=== PATIENT | female | born 1995 | race Caucasian/White ===

== ENCOUNTER 2025-05-14 23:25 | Emergency (ER) | payer SELFPAY ==
--- NOTE | ~2025-05-14 | XR_ITS ---
CLINICAL HISTORY: cough 2 view chest x-ray Comparison: None provided Findings: Lungs are clear without acute infiltrates. No pneumothorax. Heart size normal. No acute bony abnormalities. Left pacemaker with right leads. Impression: No acute processes This document has been electronically signed by: Johnnie Hughes MD on 05/15/2025 00:26:06
[2025-05-14 23:33] VITALS: BP 118/82; PULSE 62; O2SAT 99
[2025-05-14 23:36] VITALS: BP 108/60; PULSE 62; RESP 20; TEMP 36.1; O2SAT 98; BMI 20.3
[2025-05-15 00:28] LABS: Resp Syncy Virus RNA Qual PCR NEGATIVE (Negative); SARS COV2 PCR INHOUSE NEGATIVE (Negative)
--- NOTE | 2025-05-15 01:18 | ED.URI ---
HPI - URI/Sore Throat General Chief Complaint: Upper Respiratory Symptoms Stated Complaint: unhoused & has had a cough for 2 mo., now worse Time Seen by Provider: 05/15/25 01:13 Source: patient Mode of arrival: ambulatory Limitations: no limitations History of Present Illness ED Provider: DR. Kilpatrick HPI Narrative: 29-year-old female who is homeless came in to the ED today for evaluation of 2 months of cough. otherwise patient admit that she has homeless and has no place to go and need to stay warm, No headache, no neck pain, no CP, no SOB, no abdominal pain, no back pain. Related Data Allergies Allergy/AdvReac Type Severity Reaction Status Date / Time No Known Allergies Allergy Verified 05/14/25 23:37 Review of Systems Review of Systems: All other systems are reviewed and are negative Constitutional: Reports as per HPI and Reports no additional constitutional complaints Eyes: Reports as per HPI and Reports no additional eye complaints Reports system reviewed and no additional complaints, except as documented Cardiovascular: Reports as per HPI and Reports no additional cardiovascular complaints Respiratory: Reports as per HPI and Reports no additional respiratory complaints Gastrointestinal: Reports as per HPI and Reports no additional gastrointestinal complaints Genitourinary: Reports no additional female genitourinary complaints Musculoskeletal: Reports no additional musculoskeletal complaints Skin/Breast: Reports system reviewed and no additional complaints, except as docu Psychiatric: Reports no additional psychiatric complaints Endocrine: Reports no additional endocrine complaints Hematologic/Lymphatic: Reports no additional hematologic/lymphatic complaints Allergic/Immunologic: Reports no additional allergic/immunologic complaints Reports system reviewed and no additional complaints, except as documented and Reports Abnormal speech present Physical Exam Vital Signs: Vital Signs: Last Vital Signs Temp 96.9 F 05/14/25 23:36 Pulse 62 05/14/25 23:36 Resp 20 05/14/25 23:36 BP 108/60 05/14/25 23:36 Pulse Ox 98 05/14/25 23:36 O2 Del Method Room Air 05/14/25 23:36 BMI result Body Mass Index 20.3 Vital signs have been reviewed and appear to be correct. Blood pressure elevated. Heart rate normal. Respiratory rate normal. Temperature normal. Oxygen saturation normal. Appearance: Alert. Oriented X3. No acute distress. Head: Normal external exam. Normocephalic. Atraumatic. No Sousa signs noted. No raccoon eyes noted Eyes: PERRLA. EOMI. Conjunctiva and sclera normal. Eyelids normal. ENT: TM's Normal. Pharynx normal. Uvula midline. Moist mucous membranes. No trismus noted. No drooling noted. No muffled voice noted. Neck: Normal inspection. Neck supple. FROM. No adenopathy. Thyroid Normal. No meningeal signs. No neck mass noted. CVS: Normal heart rate and rhythm. Heart sound normal. No murmurs noted. Pulses normal throughout. Respiratory: No respiratory distress. Painless inspiration. Breath sounds normal. No wheezes/rales/rhonchi noted. Chest nontender. No accessory muscle usage noted or decreased air movement noted. Abdomen: Soft and nontender. Bowel sounds normal in all 4 quadrants. No distention noted. No organomegaly noted. No visible injury noted. Back: No CVA tenderness. Full range of motion noted. Skin: Skin warm and dry. Normal skin color. Normal skin turgor. No rashes/lesions/lacerations noted. Extremities: No lower extremity edema. Extremities exhibit normal range of motion. Extremities nontender. Neuro: Oriented X 3. Cranial nerve exam: II-XII are grossly intact No motor deficit. No sensory deficit. Reflexes normal. Course Reevaluation(s) Reevaluation #1: Upper respiratory infection symptoms, patient hemodynamically stable, O2 sat is 98%, with RR of 20. Chest x-ray shows no acute pathology. Upper respiratory swab is unremarkable for acute. Time: 01:25 Medical Decision Making Differential Diagnosis Differential Diagnoses: The differential diagnosis associated with the presentation includes ( Pneumonia, pneumothorax, pleural effusion, influenza, COVID-19 infection, RSV.) Admission/Observation Consideration of admission/observation: Escalation of care including admission/observation considered Lab Data MDM Lab Attestation statement: I reviewed the patient's lab results. Labs: Lab Results 05/14/25 Range/Units 23:46 Influenza Type A (PCR) NEGATIVE (Negative) Influenza Type B (PCR) NEGATIVE (Negative) RSV RNA Qual (PCR) NEGATIVE (Negative) SARS-CoV-2 RNA (RT-PCR) NEGATIVE (Negative) Independent Interpretation I performed an independent interpretation of an: Plain X-Ray ( Chest: No acute process.) Radiology Impression Discussion of test interpretation with radiology: I have reviewed the radiologist's reading. Social Determinants Patient?s care significantly limited by Social Determinants of Health including: Inadequate housing, Low income and Unemployment Discharge Plan Discharge Clinical Impression: Upper respiratory infection, Homelessness Patient Disposition: Home, Self-Care Instructions: Acute Bronchitis (ED) Print Language: Sinhala
[2025-05-15 01:23] VITALS: BP 115/56; PULSE 62; RESP 14; TEMP 36.6; O2SAT 98; O2SAT 99
--- NOTE | 2025-05-15 01:24 | PC.NURSE ---
provider assess pt, sandwich and drink given, pt homeless, okay for pt to wait in waiting room until tomorrow, security aware.
[2025-05-15 01:31] VITALS: BP 115/56; PULSE 62; RESP 14; TEMP 36.6; O2SAT 98
--- NOTE | 2025-05-15 01:31 | PC.NURSE ---
Reviewed discharge instructions with pt, pt verbalized understanding, no sign of distress.
== END 2025-05-15 01:32 | disposition home or self-care (01) ==
LOC: HO.ED 05-15 01:31
PROVIDERS: Emergency Provider Emergency Medicine
DX: J06.9 Acute upper respiratory infection, unspecified (principal); R05.9 Cough, unspecified; Z59.00 Homelessness unspecified; Z03.818 Encounter for observation for suspected exposure to other biological agents ruled out
CPT/HCPCS: 71046; 87637; 99283; 99284

== ENCOUNTER → 2025-05-14 23:51 | Outpatient (BNV) | payer SELFPAY | PROVIDERS: Visit Provider Radiology Diagnostic Radiology | DX: R05.9 Cough, unspecified (principal) | CPT/HCPCS: 71046 ==

== ENCOUNTER 2025-05-15 09:24 | Emergency (ER) | payer SELFPAY ==
[2025-05-15 09:44] VITALS: BP 108/85; PULSE 64; RESP 18; TEMP 36.6; O2SAT 99; BMI 20.7
--- NOTE | 2025-05-15 09:44 | ED_ITS ---
HPI - Psych General Chief Complaint: ETOH/Substance Use Stated Complaint: Detox Time Seen by Provider: 05/15/25 12:27 Source: patient Mode of arrival: ambulatory Limitations: no limitations History of Present Illness ED Provider: Dr. Meek HPI Narrative: This is a 29-year-old female history of crack cocaine use via smoking presented hospital today for evaluation of detox. Patient stated that she is originally from [place]. She has trouble getting into a program due to her social security issues. She was directed here by [facility] for detox for cocaine. She also states she has a mental health problem. She stated that her and her boyfriend both use crack cocaine and looking to recover from it. Looking for resources. Related Data Allergies Allergy/AdvReac Type Severity Reaction Status Date / Time No Known Allergies Allergy Verified 05/15/25 09:46 Review of Systems 2 Review of Systems: Pertinent review of systems as mentioned in HPI. All other system otherwise negative. PMFSH Past Medical History [facility] Narrative: Cocaine usage Social History Social History Advance Directives: No Advance Directives Information Provided: Yes Physical Exam 2 Exam: Exam: General: Pleasant, no distress, interacting appropriately Head: Normacephalic, atraumatic ENT: oral mucosa moist, neck supple, no tracheal deviation Cardiovascular: regular rate, regular rhythm, no murmurs, rubbing, gallops Respiratory: CTAB, no wheeze, rales, rhonchi Neurological: Awake and alert, no facial droop noted Skin: Warm and dry Psychiatric: Appropriate mood and thoughts Vital Signs: Vital Signs: Last Vital Signs Temp 97.8 F 05/15/25 09:44 Pulse 64 05/15/25 09:44 Resp 18 05/15/25 09:44 BP 108/85 05/15/25 09:44 Pulse Ox 99 05/15/25 09:44 O2 Del Method Room Air 05/15/25 09:44 BMI result Body Mass Index 20.7 Course Course Course Narrative: 29 yo female with Past medical history of cardiomyopathy 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 She has also had a cough for 2 weeks but viral panel and chest x-ray from May 14 are normal. At this time I am going to refer her take care team to see if they can assist her into getting into a facility. She also has housing and security. 9:47 AM 05/15/2025 (ROC GIRALDO): this is a RAPID medical screening exam the rest of the history and physical exam is to be done by the main provider. Medications Administered Discontinued Medications Generic Name Dose Route Start Last Admin Trade Name Freconnor PRN Reason Stop Dose Admin Hydroxyzine HCl 25 mg 05/15/25 13:20 05/15/25 13:25 Hydroxyzine Hcl 25 Mg Tablet PO 05/15/25 13:21 25 mg ONCE ONE Administration Medical Decision Making Medical Decision Making [facility] Narrative: 29-year-old female history of crack cocaine use presented hospital today for evaluation of detox. Was sent here by her for [place] for evaluation. ED recovery team consulted. Basic lab will be obtained. Drug screen will be obtained as well. We will also consult care team for assistance with medication for her mental health. Patient is uninsured. Recovery team has evaluated the patient. Unfortunately no detox bed at this time. The patient will be discharged. Nursing staff noted that patient's through her tray across the room and agitated. Outpatient resource provided the patient to self presented. Differential Diagnosis Differential Diagnoses: The differential diagnosis associated with the presentation includes Cocaine use, medication noncompliance, uninsured, suicide ideation, homelessness Consult Healthcare Provider Management of the patient was discussed with: Tugboat Engineer (ED recovery team) Lab Data [facility] Lab Attestation statement: I reviewed the patient's lab results. 05/15/25 13:09 05/15/25 13:09 Labs: Lab Results 05/15/25 Range/Units 13:09 WBC 7.5 (4.8-10.8) X10*3/uL RBC 4.49 (4.20-5.50) X10*6/uL Hgb 12.5 (12.0-16.0) g/dl Hct 38.9 (37.0-47.0) % MCV 86.6 (80.0-98.0) fL MCH 27.8 (27.0-33.0) pg MCHC 32.1 (31.0-35.0) g/dl RDW 14.8 (11.0-16.0) % Plt Count 295 (160-400) X10*3/uL MPV 8.7 L (9.4-12.3) fL Immature Gran % (Auto) 0.1 (0.0-0.4) % Neut % (Auto) 63.7 (45-73) % Lymph % (Auto) 26.0 (20-40) % Bledsoe % (Auto) 8.1 (2-11) % Eos % (Auto) 1.3 (0-4) % Baso % (Auto) 0.8 (0-2) % Lymph # (Auto) 2.0 (1.2-4.9) X10*3/uL Bledsoe # (Auto) 0.6 (0.1-1.2) X10*3/uL Eos # (Auto) 0.1 (0.0-0.4) X10*3/uL Baso # (Auto) 0.1 (0.0-0.2) X10*3/uL Abs Immat Gran (auto) 0.01 (0.00-0.03) X10*3/uL Absolute Neuts (auto) 4.8 (2.0-8.3) x10*3/uL Absolute Nucleated RBC 0.000 (0.0-0.012) X10*3/uL Nucleated RBC % (auto) 0.0 (0.0-0.2) /100WBC Sodium 138 (135-145) mmol/L Potassium 4.5 (3.3-5.1) mmol/L Chloride 107 (96-108) mmol/L Carbon Dioxide 29 (22-29) mmol/L Anion Gap 7 L (12-20) BUN 19 H (9-16) mg/dL Creatinine 0.69 (0.5-1.4) mg/dL Estim Creat Clear Calc 138.6 Estimated GFR > 60 Random Glucose 87 (60-115) mg/dL Calcium 11.4 H (8.4-10.2) mg/dL Ethyl Alcohol < 10 mg/dL Discharge Plan Discharge Clinical Impression: Substance use Patient Disposition: Home, Self-Care Additional Instructions: You were seen in our Emergency Department today for treatment of a behavioral health issue. It is important after your visit that you follow up with either your behavioral health provider or a primary care doctor within 7 days.? If you have trouble finding a therapist you can reach out to [address] [phone] The National Suicide and Crisis Lifeline can be reached 7 days a week 24 hours a day.? Call 988 to speak with someone.? Return for any worsening symptoms or concerns such as thoughts of self harm or harm to others. Please call 911 if you feel your mental health is worsening.? Print Language: Kiswahili
[2025-05-15 13:15] LABS: MANUAL DIFF FLAG NO
[2025-05-15 13:17] LABS: Hematocrit 38.9 % (37.0-47.0); Hemoglobin 12.5 g/dl (12.0-16.0); Imm Gran Abs Auto 0.01 X10*3/uL (0.00-0.03); Imm Gran Pct Auto 0.1 % (0.0-0.4); Lymphocytes Absolute Auto 2.0 X10*3/uL (1.2-4.9); Mean Corpuscular HGB Conc 32.1 g/dl (31.0-35.0); Mean Corpuscular Hemoglobin 27.8 pg (27.0-33.0); Mean Corpuscular Volume 86.6 fL (80.0-98.0); NRBC Abs Auto 0.000 X10*3/uL (0.0-0.012); NRBC Pct Auto 0.0 /100WBC (0.0-0.2); Platelet Count 295 X10*3/uL (160-400); Red Blood Count 4.49 X10*6/uL (4.20-5.50); White Blood Count 7.5 X10*3/uL (4.8-10.8)
--- NOTE | 2025-05-15 13:25 | MHC.CARE ---
[facility] has no detox bed availability today and Pt is not able to admit to any other detox facility due to being uninsured. Pt will D/C. ED provider in agreement.
[2025-05-15 13:38] LABS: Anion Gap 7 (12-20); Blood Urea Nitrogen 19 mg/dL (9-16); Calcium 11.4 mg/dL (8.4-10.2); Carbon Dioxide 29 mmol/L (22-29); Chloride 107 mmol/L (96-108); Creatinine Clr Calc Pharmacy 138.6; Estimated Glomerular Filt Rate > 60; Potassium 4.5 mmol/L (3.3-5.1); Sodium 138 mmol/L (135-145)
[2025-05-15 14:04] VITALS: BP 108/85; PULSE 64; RESP 18; TEMP 36.6
== END 2025-05-15 14:05 | disposition home or self-care (01) ==
PROVIDERS: Emergency Provider Student in an Organized Health Care Education/Training Program
DX: F14.10 Cocaine abuse, uncomplicated (principal); R05.9 Cough, unspecified; R45.1 Restlessness and agitation; Z95.0 Presence of cardiac pacemaker
CPT/HCPCS: 36415; 80048; 80307; 85025; 99284; S9485